=== PATIENT | female | born 1960 | race Caucasian/White ===

== ENCOUNTER → 2017-02-13 | Outpatient (CLI) | payer BC | LOC: MC.RAD 10:20 | DX: Z12.31 Encounter for screening mammogram for malignant neoplasm of breast (principal) ==

== ENCOUNTER 2017-07-31 08:37 | Day surgery (SDC) | payer BC ==
[~2017-07-31] VITALS: Ht 170.2 cm; Wt 75.1 kg
[2017-07-31 09:10] VITALS: BP 115/74; PULSE 60; TEMP 99
[2017-07-31] MEDS ORDERED: ADVIL200 MG PO (09:10)
[2017-07-31 10:15] VITALS: BP 115/84; PULSE 53
[2017-07-31 10:30] VITALS: BP 99/78; PULSE 54
[2017-07-31 10:45] VITALS: BP 113/86; PULSE 52
== END 2017-07-31 11:15 | disposition home or self-care (01) ==
LOC: SDCO 08:37
DX: Z12.11 Encounter for screening for malignant neoplasm of colon (principal); Z86.010 Personal history of colon polyps; Z80.0 Family history of malignant neoplasm of digestive organs
CPT/HCPCS: OP; J2250; J3010; J7030

== ENCOUNTER 2017-10-23 06:58 | Emergency (ER) | payer SELFPAY ==
[~2017-10-23] VITALS: Ht 167.6 cm; Wt 77.3 kg
[~2017-10-23 06:58] MED LIST: ADVIL200 MG PO
[2017-10-23] MEDS ORDERED: NORCO 325 MG-51 TAB PO (08:07)
[2017-10-23] MEDS ORDERED: ZOFRAN 4MG T4 MG/TAB PO (08:14)
[2017-10-23 08:48] VITALS: BP 112/82; PULSE 54; TEMP 97.1
== END 2017-10-23 08:59 | disposition home or self-care (01) ==
LOC: COL.ER 06:58
DX: S42.212A Unspecified displaced fracture of surgical neck of left humerus, initial encounter for closed fracture (principal); W01.0XXA Fall on same level from slipping, tripping and stumbling without subsequent striking against object, initial encounter; Y92.89 Other specified places as the place of occurrence of the external cause; Y99.0 Civilian activity done for income or pay

== ENCOUNTER → 2017-10-29 | Outpatient (CLI) | payer OTHER ==
[~2017-10-29] MED LIST changes: +NORCO 325 MG-51 TAB PO; +ZOFRAN 4MG T4 MG/TAB PO
== END ==
LOC: COL.RAD 07:52
DX: S42.292A Other displaced fracture of upper end of left humerus, initial encounter for closed fracture (principal); S43.102A Unspecified dislocation of left acromioclavicular joint, initial encounter

== ENCOUNTER → 2018-01-29 | Outpatient (CLI) | payer BC | LOC: COL.RAD 14:44 | DX: M54.16 Radiculopathy, lumbar region (principal) ==

== ENCOUNTER 2018-05-03 16:15 | Outpatient (RCR) | payer BC | END 2018-05-11 | disposition home or self-care (01) | LOC: WSPT | DX: M54.42 Lumbago with sciatica, left side (principal); G89.29 Other chronic pain ==

== ENCOUNTER → 2020-08-03 | Outpatient (CLI) | payer BC | LOC: COL.RAD 08:06 | DX: M50.30 Other cervical disc degeneration, unspecified cervical region (principal); G43.909 Migraine, unspecified, not intractable, without status migrainosus ==

== ENCOUNTER 2021-03-22 08:34 | Day surgery (SDC) | payer BC ==
[~2021-03-22] VITALS: Ht 167.6 cm; Wt 82.0 kg
[2021-03-22] MEDS ORDERED: MAXALT MLT10 MG/TAB PO (09:02)
[2021-03-22] MEDS ORDERED: MAG-OX 400400 MG/TAB PO (09:03)
[2021-03-22] MEDS ORDERED: CALCIUM-500 5001 CTB PO (09:04)
[2021-03-22] MEDS ORDERED: KRILL OIL 5001 EACH PO (09:04)
[2021-03-22] MEDS ORDERED: CENTRUM SILVER1 CTB PO (09:04)
[2021-03-22] MEDS ORDERED: VITAMIN D 400400 IU PO (09:05)
[2021-03-22] MEDS ORDERED: THE MEDICINE S200 M2 PO (09:06)
[2021-03-22] MEDS ORDERED: EXCEDRIN1 TAB PO (09:06)
[2021-03-22 09:07] VITALS: BP 116/84; PULSE 67; TEMP 98.1
[2021-03-22 10:40] VITALS: BP 103/69; PULSE 63; TEMP 97.6
--- NOTE | 2021-03-22 10:40 | NUR ---
transported by cart to discharge room accompanied by a nurse, alert to surroundings, able to stand and ambulate to the recliner, monitors on and alarms set. call light in reach, spouse called about her being back from procedure, able to sip on water w/o difficulty or discomfort.
[2021-03-22 10:55] VITALS: BP 110/78; PULSE 64
[2021-03-22 11:10] VITALS: BP 116/80; PULSE 68
--- NOTE | 2021-03-22 11:10 | NUR ---
IV dc'd in right forearm, bandaid applied to site, discharge instructions reviewed and copies sent home with patient. able to stand and dress herself, spouse in the room.
== END 2021-03-22 11:22 | disposition home or self-care (01) ==
LOC: SDCO 08:34
DX: Z12.11 Encounter for screening for malignant neoplasm of colon (principal); Z87.891 Personal history of nicotine dependence; M19.90 Unspecified osteoarthritis, unspecified site; Z79.899 Other long term (current) drug therapy; K62.89 Other specified diseases of anus and rectum
CPT/HCPCS: J7120